=== PATIENT | male | born 1960 | race Caucasian/White ===

== ENCOUNTER 2023-03-16 17:23 | Emergency (ER) | payer SELFPAY ==
[~2023-03-16] VITALS: Ht 175.3 cm; Wt 118.0 kg
[2023-03-16 17:27] VITALS: BP 157/95
== END 2023-03-16 22:55 | disposition left against medical advice (07) ==
LOC: ER 17:23
DX: R10.9 Unspecified abdominal pain (principal)
CPT/HCPCS: 99283